=== PATIENT | male | born 1995 | race Caucasian/White ===

== ENCOUNTER 2018-01-03 12:10 | Inpatient (IN) | END 2018-01-11 13:05 | DRG 73 ==

== ENCOUNTER 2018-02-01 21:16 | Inpatient (IN) | END 2018-02-28 14:44 | DRG 25 ==

== ENCOUNTER 2018-03-05 17:18 | Inpatient (IN) | END 2018-03-23 21:34 | DRG 919 ==

== ENCOUNTER → 2018-04-18 | Outpatient (CLI) | END | disposition home or self-care (01) ==

== ENCOUNTER 2018-11-11 09:14 | Day surgery (SDC) | payer OTHER ==
[~2018-11-11] VITALS: Ht 172.7 cm; Wt 51.5 kg
[~2018-11-11 09:14] MED LIST: ACET650S25 GTB; BACL10TA PO; BISA10SU75 PR; DOCU50LI11 GTB; FAMO-96 GTB; HYDR-3601 GTB; LEVE100018 PEG; MAGN400O19 GTB; METO-429 GTB; ONDA4TAB13 GTB; PHEN200C PEG; POLY17PO28 GTB
[2018-11-11 10:22] VITALS: Ht 172.7 cm; Wt 51.5 kg
[2018-11-11] MEDS ORDERED: CLOTRIMAZOLE CREAM (10:26)
[2018-11-11] MEDS ORDERED: TRAZADONE (10:26)
[2018-11-11 10:46] VITALS: BP 107/69; PULSE 79; RESP 16
[2018-11-11 10:50] VITALS: BP 118/79; PULSE 73; RESP 18
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
== END 2018-11-11 11:00 | disposition home or self-care (01) ==
LOC: GIL 09:14
PROVIDERS: ATTEND Internal Medicine Gastroenterology
DX: Z43.1 Encounter for attention to gastrostomy (principal)